=== PATIENT | male | born 1975 | race Caucasian/White ===

== ENCOUNTER 2018-11-06 07:26 | Outpatient (CLI) | payer OTHER ==
[2018-11-06] MEDS ORDERED: ROSU20TA2 PO (08:22)
[2018-11-06] MEDS ORDERED: ZINC PO (08:22)
[2018-11-06] MEDS ORDERED: GLUCOSAMINE (08:22)
[2018-11-06] MEDS ORDERED: MULT-154 PO (08:22)
[2018-11-06] MEDS ORDERED: IBUP-1902 PO (08:22)
[2018-11-06] MEDS ORDERED: CALC PO (08:22)
[2018-11-06] MEDS ORDERED: VITAMIN C (08:22)
[2018-11-06] MEDS ORDERED: FISH OIL (08:22)
[2018-11-06] MEDS ORDERED: MAG PO (08:22)
[2018-11-06] MEDS ORDERED: MONT10TA9 PO (08:22)
[2018-11-06] MEDS ORDERED: LEVO5TAB29 PO (08:41)
[2018-11-06] MEDS ORDERED: TESTOSTERONE CYP PO (08:41)
[2018-11-06 08:54] LABS: BASOPHILS # (AUTO) 0.06 x10^3/uL (0-0.1); BASOPHILS % (AUTO) 1 % (0-1); EOSINOPHILS # (AUTO) 0.15 x10^3/uL (0-0.4); EOSINOPHILS % (AUTO) 1 % (1-7); LYMPHOCYTES # (AUTO) 2.65 x10^3/uL (1-3.4); LYMPHOCYTES % (AUTO) 25 % (22-44); MD NO; MEAN CORPUSCULAR HEMOGLOBIN 29.2 pg (27.5-34.5); MEAN CORPUSCULAR HGB CONC 32.8 g/dL (33.2-36.2); MONOCYTES # (AUTO) 1.33 x10^3/uL (0.2-0.8); MONOCYTES % (AUTO) 13 % (2-9); NEUTROPHILS # (AUTO) 6.34 x10^3/uL (1.8-6.8); NEUTROPHILS % (AUTO) 60 % (42-75); PLATELET COUNT 347 x10^3/uL (130-400)
[2018-11-06 09:02] LABS: ALBUMIN 4.1 g/dL (3.4-5.0); ANION GAP 5 mmol/L (5-15); CALCIUM 9.1 mg/dL (8.5-10.1); CHLORIDE 110 mmol/L (98-107)
[2018-11-06 09:30] LABS: % IRON SATURATION 25 % (20-55); ALANINE AMINOTRANSFERASE 37 U/L (12-78); ALKALINE PHOSPHATASE 90 U/L (45-117); BILIRUBIN,TOTAL 0.5 mg/dL (0.2-1.0); CHOLESTEROL, TOTAL 180 mg/dL (140-239); CREATININE 1.12 mg/dL (0.7-1.3); HDL CHOL % 25 % (26-37); HDL CHOLESTEROL (DIRECT) 45 mg/dL (40-60); IRON LEVEL 83 mcg/dL (65-175); LDL CHOLESTEROL,CALCULATED 107 mg/dL (54-169); LDL/HDL RATIO 2.4 (0.5-3.0); PREALBUMIN 26.2 mg/dL (20.0-40.0); TOTAL IRON BINDING CAPACITY 332 mcg/dL (250-450); TOTAL PROTEIN 8.2 g/dL (6.4-8.2); TRANSFERRIN 259 mg/dL (200-360); TRIGLYCERIDES 141 mg/dL (50-200); VLDL CHOLESTEROL 28 mg/dL (0-25)
[2018-11-19] MEDS ORDERED: HYDR15SO3 PO (09:30)
== END 2018-11-06 23:59 | disposition home or self-care (01) ==
LOC: STAR 07:26
PROVIDERS: ATTEND Thoracic Surgery (Cardiothoracic Vascular Surgery)
DX: Z01.818 Encounter for other preprocedural examination (principal)
CPT/HCPCS: 36415; 71046; 80053; 80061; 82306; 82607; 82728; 83540; 83550; 83970; 84134; 84466; 85025; 93005

== ENCOUNTER 2018-11-18 05:44 | Inpatient (IN) | payer OTHER ==
[~2018-11-18] VITALS: Ht 188 cm; Wt 142.0 kg
[2018-11-19 07:14] VITALS: BP 116/70
== END 2018-11-19 11:25 | disposition home or self-care (01) | DRG 621 ==
LOC: ORIP 05:44 → 4NOR 10:19 → DCLOUNGE 11-19 11:15
PROVIDERS: ADMIT Thoracic Surgery (Cardiothoracic Vascular Surgery); ATTEND Thoracic Surgery (Cardiothoracic Vascular Surgery)
PROC: 0DB64Z3 Excision of Stomach, Percutaneous Endoscopic Approach, Vertical (ICD-10-PCS; principal; 2018-11-18)
PROC: 0BQT4ZZ Repair Diaphragm, Percutaneous Endoscopic Approach (ICD-10-PCS; 2018-11-18)
DX: E66.01 Morbid (severe) obesity due to excess calories (principal); K44.9 Diaphragmatic hernia without obstruction or gangrene; Z68.41 Body mass index [BMI] 40.0-44.9, adult; E78.00 Pure hypercholesterolemia, unspecified; G47.30 Sleep apnea, unspecified; K66.0 Peritoneal adhesions (postprocedural) (postinfection); Z90.49 Acquired absence of other specified parts of digestive tract; Z90.89 Acquired absence of other organs
CPT/HCPCS: 36415; J3490; 80048; 82040; 85025; 88307; G0378; J0131; J1100; J1170; J1885; J2175; J2250; J2405; J2704; J3010; J2270; J2370; J7120

== ENCOUNTER 2019-07-11 03:19 | Emergency (ER) | payer OTHER ==
[~2019-07-11] VITALS: Ht 188 cm; Wt 77.7 kg
[~2019-07-11 03:19] MED LIST: CALC PO; FISH OIL; GLUCOSAMINE; HYDR15SO3 PO; IBUP-1902 PO; LEVO5TAB29 PO; MAG PO; MONT10TA11 PO; MULT-154 PO; ROSU20TA2 PO; TESTOSTERONE CYP PO; VITAMIN C; ZINC PO
--- NOTE | 2019-07-11 03:40 | NUR ---
THIS IS A 44 YO MALE COMING IN FOR BILATERAL UPPER QUADRANT/EPIGASTRIC PAIN SINCE MIDNIGHT WITH ASSOCIATED N/V. PAITENT STATES "I THINK IT'S A COMPLICATION FROM THE HERNIA THAT HAPPENED AFTER MY GASTRIC SLEEVE SURGERY IN NOVEMBER". PATIENT HAS EXTENSIVE ABDOMINAL SURGICAL HX, PAIN HAS BEEN INTERMITTENT FOR THE PAST COUPLE MONTHS, BUT "NEVER THIS BAD, AND I HEAR THINGS SLOSHING AROUND MORE THAN NORMAL". HERNIA NOTED IN UPPER RIGHT QUADRANT, TENDER TO PALPATION. PAIN RATED 8/10, NO RADIATION, DESCRIBED SHARP PAIN ACROSS UPPER QUADRANTS. A&OX4, DENIES SOB/CP, DENIES WEAKNESS OR LIGHTHEADED. SPO2 AND BP MONITORING IN PLACE. VSS. PIV PLACED, LABS DRAWN. CALL LIGHT IN REACH.
--- NOTE | 2019-07-11 03:40 | NUR ---
Note undone in EDM - 07/11/19 at 0426 by KLEVER THIS IS A 44 YO MALE COMING IN FOR BILATERAL UPPER QUADRANT/EPIGASTRIC PAIN SINCE MIDNIGHT WITH ASSOCIATED N/V. LEXIT STATES "I THINK IT'S A COMPLICATION FROM THE HERNIA THAT HAPPENED AFTER MY GASTRIC SLEEVE SURGERY IN NOVEMBER". PATIENT HAS EXTENSIVE ABDOMINAL SURGICAL HX, PAIN HAS BEEN INTERMITTENT FOR THE PAST COUPLE MONTHS, BUT "NEVER THIS BAD, AND I HEAR THINGS SLOSHING AROUND MORE THAN NORMAL". HERNIA NOTED IN UPPER RIGHT QUADRANT, TENDER TO PALPATION. PAIN RATED 8/10, NO RADIATION, DESCRIBED SHARP PAIN ACROSS UPPER QUADRANTS. A&OX4, DENIES SOB/CP, DENIES WEAKNESS OR LIGHTHEADED. SPO2 AND BP MONITORING IN PLACE. VSS. PIV PLACED, LABS DRAWN. CALL LIGHT IN REACH.
[2019-07-11] MEDS ORDERED: CELE200C PO (03:50)
[2019-07-11] MEDS ORDERED: METH4TAB6 PO (03:50)
[2019-07-11] MEDS ORDERED: GABA300C10 PO (03:51)
[2019-07-11] MEDS ORDERED: OMEP-110 PO (03:51)
[2019-07-11] MEDS ORDERED: TIZA4CAP PO (03:51)
[2019-07-11] MEDS ORDERED: METH750T2 PO (03:52)
[2019-07-11] MEDS ORDERED: TRAM50TA2 PO (03:52)
[2019-07-11] MEDS ORDERED: MORPHINE SULFATE 4 MG/ML, 1ML ONE (03:53)
[2019-07-11] MEDS ORDERED: ONDANSETRON 2MG/ML, 2ML ONE (03:53)
[2019-07-11 03:57] LABS: BASOPHILS # (AUTO) 0.05 x10^3/uL (0-0.1); BASOPHILS % (AUTO) 1 % (0-1); EOSINOPHILS # (AUTO) 0.06 x10^3/uL (0-0.4); EOSINOPHILS % (AUTO) 1 % (1-7); LYMPHOCYTES # (AUTO) 1.78 x10^3/uL (1-3.4); LYMPHOCYTES % (AUTO) 21 % (22-44); MD NO; MEAN CORPUSCULAR HEMOGLOBIN 30.1 pg (27.5-34.5); MEAN CORPUSCULAR HGB CONC 32.9 g/dL (33.2-36.2); MEAN CORPUSCULAR VOLUME 91.7 fL (81-97); MEAN PLATELET VOLUME 8.3 fL (7.4-10.4); MONOCYTES # (AUTO) 0.72 x10^3/uL (0.2-0.8); MONOCYTES % (AUTO) 9 % (2-9); NEUTROPHILS # (AUTO) 5.77 x10^3/uL (1.8-6.8); NEUTROPHILS % (AUTO) 69 % (42-75); PLATELET COUNT 318 x10^3/uL (130-400); RED BLOOD COUNT 4.61 x10^6/uL (4.38-5.82); RED CELL DISTRIBUTION WIDTH 15.1 % (9.4-14.8)
[2019-07-11] MEDS ORDERED: MORPHINE SULFATE 4 MG/ML, 1ML IVPush PRN (04:00)
[2019-07-11] MEDS ORDERED: SODIUM CHLORIDE FLUSH 10ML SYR IVF ONE (04:00)
[2019-07-11] MEDS ORDERED: ONDANSETRON 2MG/ML, 2ML IVPush ONE (04:00)
--- NOTE | 2019-07-11 04:03 | NUR ---
PATIENT MEDICATED PER EMAR, TOLERATED WELL
[2019-07-11 04:09] LABS: ALBUMIN 3.8 g/dL (3.4-5.0); ANION GAP 6 mmol/L (5-15); CALCIUM 8.9 mg/dL (8.5-10.1); CHLORIDE 110 mmol/L (98-107)
[2019-07-11 04:12] LABS: ALANINE AMINOTRANSFERASE 51 U/L (12-78); ALKALINE PHOSPHATASE 51 U/L (45-117); BILIRUBIN,TOTAL 0.2 mg/dL (0.2-1.0); CREATININE 0.98 mg/dL (0.7-1.3); TOTAL PROTEIN 7.4 g/dL (6.4-8.2)
--- NOTE | 2019-07-11 04:15 | NUR ---
Erica mirza in [facility] - 07/11/19 at [address]IENT [address]
--- NOTE | 2019-07-11 04:30 | NUR ---
PT IN CT
[2019-07-11] MEDS ORDERED: OMNIPAQUE 350 MG/ML, 100ML BOTTLE ONE (04:37)
[2019-07-11 04:47] VITALS: BP 111/68
--- NOTE | 2019-07-11 04:48 | NUR ---
UA COLLECTED AND SENT
[2019-07-11 05:00] LABS: MICROSCOPIC AUTO
[2019-07-11 05:01] LABS: CULTURE INDICATED? NO
--- NOTE | 2019-07-11 05:25 | NUR ---
ERP IN ROOM
--- NOTE | 2019-07-11 05:33 | NUR ---
PIV REMOVED, PATIENT TO BE DISCHARGED. AWAITING DISCHARGE PAPERWORK
--- NOTE | 2019-07-11 05:40 | NUR ---
Patient given discharge instructions and they have confirmed that they understand the instructions. Patient ambulatory with steady gait.
== END 2019-07-11 05:42 | disposition home or self-care (01) ==
LOC: ED 04:14
DX: R10.84 Generalized abdominal pain (principal); E78.5 Hyperlipidemia, unspecified
CPT/HCPCS: 36415; 74177; 80053; 81001; 83690; 85025; 96374; 96375; 99285; J2270; J2405; Q9967

== ENCOUNTER 2019-08-17 15:59 | Inpatient (IN) | payer OTHER ==
[~2019-08-17] VITALS: Ht 188 cm; Wt 77.8 kg
[~2019-08-17 15:59] MED LIST changes: +CELE200C PO; +GABA300C10 PO; +METH4TAB6 PO; +METH750T2 PO; +OMEP-110 PO; +TIZA4CAP PO; +TRAM50TA2 PO
--- NOTE | 2019-08-17 16:16 | NUR ---
ABD PAIN ALL QUADRANTS, N/V SINCE LAST NIGHT. Seen here for same a few weeks ago Patient quite anxious & animated Placed on NIbp/pox Provider to bedside review poc
[2019-08-17] MEDS ORDERED: ONDANSETRON 2MG/ML, 2ML ONE (16:24)
[2019-08-17] MEDS ORDERED: HYDROmorphone 1 MG/ML, 1ML INJ ONE ×2 (16:24→18:01)
[2019-08-17] MEDS ORDERED: SODIUM CHLORIDE FLUSH 10ML SYR IVF ONE (16:30)
[2019-08-17] MEDS ORDERED: ONDANSETRON 2MG/ML, 2ML IVPush ONE (16:30)
[2019-08-17] MEDS ORDERED: SODIUM CHLORIDE 0.9% 1,000ML IVBOLUS ONE (16:30)
[2019-08-17] MEDS: HYDROmorphone 2 MG/ML, 1ML IVPush PRN ×3 (16:41→22:07)
--- NOTE | 2019-08-17 16:45 | NUR ---
Ua sent Piv placed from which labs were drawn Patient then medicated per EMAR for Abd pain at 8/10 and nausea at 7/10
[2019-08-17 16:56] LABS: BASOPHILS # (AUTO) 0.09 x10^3/uL (0-0.1); BASOPHILS % (AUTO) 1 % (0-1); EOSINOPHILS # (AUTO) 0.08 x10^3/uL (0-0.4); EOSINOPHILS % (AUTO) 1 % (1-7); LYMPHOCYTES # (AUTO) 1.49 x10^3/uL (1-3.4); LYMPHOCYTES % (AUTO) 12 % (22-44); MD NO; MEAN CORPUSCULAR HEMOGLOBIN 30.5 pg (27.5-34.5); MEAN CORPUSCULAR HGB CONC 32.8 g/dL (33.2-36.2); MEAN CORPUSCULAR VOLUME 93.1 fL (81-97); MEAN PLATELET VOLUME 8.5 fL (7.4-10.4); MONOCYTES # (AUTO) 1.04 x10^3/uL (0.2-0.8); MONOCYTES % (AUTO) 8 % (2-9); NEUTROPHILS # (AUTO) 10.02 x10^3/uL (1.8-6.8); NEUTROPHILS % (AUTO) 79 % (42-75); PLATELET COUNT 335 x10^3/uL (130-400); RED BLOOD COUNT 5.24 x10^6/uL (4.38-5.82); RED CELL DISTRIBUTION WIDTH 14.9 % (9.4-14.8)
[2019-08-17 17:04] LABS: CULTURE INDICATED? NO; MICROSCOPIC AUTO
[2019-08-17 17:09] LABS: ANION GAP 8 mmol/L (5-15); CALCIUM 10.2 mg/dL (8.5-10.1); CHLORIDE 103 mmol/L (98-107); CREATININE 1.27 mg/dL (0.7-1.3)
[2019-08-17 17:10] LABS: ALANINE AMINOTRANSFERASE 83 U/L (12-78); ALBUMIN 4.7 g/dL (3.4-5.0)
[2019-08-17 17:12] LABS: ALKALINE PHOSPHATASE 65 U/L (45-117); BILIRUBIN,TOTAL 0.8 mg/dL (0.2-1.0); TOTAL PROTEIN 8.9 g/dL (6.4-8.2)
--- NOTE | 2019-08-17 17:41 | NUR ---
with reassessment: patient quite drowsy (requiring 2l nc). However, asking for more pain/nause medicines (level at 5/10 x 2). Provider made aware
--- NOTE | 2019-08-17 17:50 | NUR ---
To ct scan
[2019-08-17] MEDS ORDERED: OMNIPAQUE 350 MG/ML, 100ML BOTTLE ONE (17:59)
--- NOTE | 2019-08-17 18:10 | NUR ---
Medicated per Emar for pain which has rebounded to 910 remains on 2l nc Updated on estimated poc
[2019-08-17] MEDS ORDERED: MIDAZOLAM 1 MG/ML, 2ML ONE (19:03)
--- NOTE | 2019-08-17 19:06 | NUR ---
ER PROVIDER TO BEDSIDE-AFTER CONSULTING SURGERY WOULD NOW LIKE NG TUBE DESPITE LACK OF VOMITING. REPORT TO RAJINDER MATHEWS WHO WILL PLACE NG TUBE
[2019-08-17] MEDS ORDERED: MIDAZOLAM 1 MG/ML, 2ML IVPush ONE (19:30)
--- NOTE | 2019-08-17 20:08 | NUR ---
Report given to REID Gaona. Patient to be transferred to room 467-1.
[2019-08-17 20:40] VITALS: BP 138/83
[2019-08-17] MEDS: SODIUM CHLORIDE 0.9% 1,000 ML IV SCH (20:56)
[2019-08-17] MEDS: BISACODYL 10 MG SUPP PR SCH (21:00)
[2019-08-17] MEDS: ONDANSETRON 2MG/ML, 2ML IVPush PRN (22:08)
[2019-08-17 22:23] VITALS: BP 138/83
[2019-08-18 01:50] VITALS: BP 114/60
[2019-08-18] MEDS: HYDROmorphone 2 MG/ML, 1ML IVPush PRN ×8 (02:05→21:30)
[2019-08-18] MEDS: ONDANSETRON 2MG/ML, 2ML IVPush PRN ×3 (04:05→18:15)
[2019-08-18] MEDS: SODIUM CHLORIDE 0.9% 1,000 ML IV SCH (05:18)
[2019-08-18] MEDS ORDERED: LORazepam 2 MG/ML, 1ML ONE (05:41)
[2019-08-18] MEDS ORDERED: LORazepam 2 MG/ML, 1ML IVPush ONE (06:00)
[2019-08-18 06:13] LABS: ALBUMIN 3.5 g/dL (3.4-5.0); ANION GAP 8 mmol/L (5-15); CALCIUM 8.4 mg/dL (8.5-10.1); CHLORIDE 111 mmol/L (98-107)
[2019-08-18 06:20] LABS: ALANINE AMINOTRANSFERASE 53 U/L (12-78); ALKALINE PHOSPHATASE 49 U/L (45-117); BILIRUBIN,TOTAL 0.8 mg/dL (0.2-1.0); TOTAL PROTEIN 6.7 g/dL (6.4-8.2)
[2019-08-18 06:25] LABS: BASOPHILS # (AUTO) 0.05 x10^3/uL (0-0.1); BASOPHILS % (AUTO) 1 % (0-1); EOSINOPHILS # (AUTO) 0.11 x10^3/uL (0-0.4); EOSINOPHILS % (AUTO) 1 % (1-7); LYMPHOCYTES # (AUTO) 1.89 x10^3/uL (1-3.4); LYMPHOCYTES % (AUTO) 22 % (22-44); MD NO; MEAN CORPUSCULAR HEMOGLOBIN 30.3 pg (27.5-34.5); MEAN CORPUSCULAR HGB CONC 32.7 g/dL (33.2-36.2); MEAN CORPUSCULAR VOLUME 92.8 fL (81-97); MEAN PLATELET VOLUME 8.5 fL (7.4-10.4); MONOCYTES % (AUTO) 9 % (2-9); NEUTROPHILS % (AUTO) 67 % (42-75); PLATELET COUNT 273 x10^3/uL (130-400)
[2019-08-18 07:21] VITALS: BP 112/61
[2019-08-18] MEDS: BISACODYL 10 MG SUPP PR SCH (08:58)
[2019-08-18] MEDS: D5%-0.45NACL+KCL 20MEQ 1,000 ML IV SCH ×2 (09:56→22:21)
[2019-08-18] MEDS ORDERED: CHLORHEXIDINE 15 ML UDC MM STA (11:08)
[2019-08-18] MEDS ORDERED: CHLORHEXIDINE 15 ML UDC ONE (11:11)
[2019-08-18] MEDS ORDERED: MIDAZOLAM 1 MG/ML, 2ML ONE (11:34)
[2019-08-18] MEDS ORDERED: FENTANYL PF 250 MCG/5ML ONE (11:34)
[2019-08-18] MEDS ORDERED: GLYCOPYRROLATE 0.2MG/1ML, 5ML ONE (11:35)
[2019-08-18] MEDS ORDERED: PROPOFOL 10 MG/ML, 20ML ONE (11:35)
[2019-08-18] MEDS ORDERED: NEOSTIGMINE 1 MG/ML, 10ML ONE (11:35)
[2019-08-18] MEDS ORDERED: CEFOTETAN PMX 2GM/50ML 50 ML ONE (11:35)
[2019-08-18] MEDS ORDERED: ROCURONIUM 10MG/ML,5ML ONE (11:35)
[2019-08-18] MEDS ORDERED: SUCCINYLCHOLINE 20 MG/ML, 10ML ONE (11:35)
[2019-08-18] MEDS ORDERED: BUPIVACAINE/PF-EPI 0.5% 1:200K ONE (11:54)
[2019-08-18] MEDS ORDERED: hydrALAzine 20 MG/ML, 1ML IV PRN (12:00)
[2019-08-18] MEDS ORDERED: MEPERIDINE/PF 25MG/ML,1ML IVPush PRN (12:00)
[2019-08-18] MEDS ORDERED: LABETALOL 5MG/ML, 20ML IV PRN (12:00)
[2019-08-18] MEDS ORDERED: ONDANSETRON 2MG/ML, 2ML IV PRN (12:00)
[2019-08-18] MEDS ORDERED: FENTANYL PF 100 MCG/2ML ONE (14:02)
[2019-08-18] MEDS: FENTANYL PF 100 MCG/2ML IV PRN ×2 (14:04→14:12)
[2019-08-18] MEDS ORDERED: MORPHINE SULFATE 4 MG/ML, 1ML ONE ×2 (14:15→14:26)
[2019-08-18] MEDS: MORPHINE SULFATE 4 MG/ML, 1ML IVPush PRN ×4 (14:17→20:12)
[2019-08-18] MEDS ORDERED: HYDROmorphone 1 MG/ML, 1ML INJ ONE ×2 (14:33→14:54)
[2019-08-18 15:38] VITALS: BP 111/59
[2019-08-18 20:14] VITALS: BP 113/63
[2019-08-19] MEDS: HYDROmorphone 2 MG/ML, 1ML IVPush PRN ×9 (00:26→21:51)
[2019-08-19] MEDS: ONDANSETRON 2MG/ML, 2ML IVPush PRN ×3 (00:31→19:32)
[2019-08-19 01:12] VITALS: BP 100/54
[2019-08-19 04:26] VITALS: BP 99/57
[2019-08-19 05:11] LABS: BASOPHILS # (AUTO) 0.01 x10^3/uL (0-0.1); BASOPHILS % (AUTO) 0 % (0-1); EOSINOPHILS # (AUTO) 0.09 x10^3/uL (0-0.4); EOSINOPHILS % (AUTO) 1 % (1-7); LYMPHOCYTES # (AUTO) 1.01 x10^3/uL (1-3.4); LYMPHOCYTES % (AUTO) 13 % (22-44); MD NO; MEAN CORPUSCULAR HEMOGLOBIN 30.6 pg (27.5-34.5); MEAN CORPUSCULAR HGB CONC 32.7 g/dL (33.2-36.2); MEAN CORPUSCULAR VOLUME 93.4 fL (81-97); MEAN PLATELET VOLUME 8.4 fL (7.4-10.4); MONOCYTES # (AUTO) 0.69 x10^3/uL (0.2-0.8); MONOCYTES % (AUTO) 9 % (2-9); NEUTROPHILS % (AUTO) 77 % (42-75); PLATELET COUNT 232 x10^3/uL (130-400); RED BLOOD COUNT 4.02 x10^6/uL (4.38-5.82)
[2019-08-19 05:14] LABS: ALBUMIN 2.9 g/dL (3.4-5.0); ANION GAP 6 mmol/L (5-15); CHLORIDE 111 mmol/L (98-107)
[2019-08-19 05:15] LABS: CREATININE 0.81 mg/dL (0.7-1.3)
[2019-08-19] MEDS: D5%-0.45NACL+KCL 20MEQ 1,000 ML IV SCH ×2 (06:36→15:39)
[2019-08-19 06:48] VITALS: BP 98/58
[2019-08-19] MEDS: BISACODYL 10 MG SUPP PR SCH (09:33)
[2019-08-19 12:07] VITALS: BP 100/64
[2019-08-19 18:32] VITALS: BP 103/63
[2019-08-20] MEDS: HYDROmorphone 2 MG/ML, 1ML IVPush PRN ×3 (00:52→07:47)
[2019-08-20 01:05] VITALS: BP 96/56
[2019-08-20] MEDS: ONDANSETRON 2MG/ML, 2ML IVPush PRN ×2 (01:36→07:48)
[2019-08-20] MEDS: D5%-0.45NACL+KCL 20MEQ 1,000 ML IV SCH ×2 (02:00→14:00)
[2019-08-20 05:50] LABS: BASOPHILS # (AUTO) 0.02 x10^3/uL (0-0.1); BASOPHILS % (AUTO) 0 % (0-1); EOSINOPHILS # (AUTO) 0.43 x10^3/uL (0-0.4); EOSINOPHILS % (AUTO) 6 % (1-7); LYMPHOCYTES # (AUTO) 1.42 x10^3/uL (1-3.4); LYMPHOCYTES % (AUTO) 21 % (22-44); MD NO; MEAN CORPUSCULAR HEMOGLOBIN 30.7 pg (27.5-34.5); MEAN CORPUSCULAR HGB CONC 32.8 g/dL (33.2-36.2); MEAN CORPUSCULAR VOLUME 93.7 fL (81-97); MEAN PLATELET VOLUME 8.1 fL (7.4-10.4); MONOCYTES # (AUTO) 0.86 x10^3/uL (0.2-0.8); MONOCYTES % (AUTO) 13 % (2-9); NEUTROPHILS # (AUTO) 3.98 x10^3/uL (1.8-6.8); NEUTROPHILS % (AUTO) 59 % (42-75); PLATELET COUNT 221 x10^3/uL (130-400); RED BLOOD COUNT 3.78 x10^6/uL (4.38-5.82); RED CELL DISTRIBUTION WIDTH 14.9 % (9.4-14.8)
[2019-08-20 05:53] LABS: ALBUMIN 2.8 g/dL (3.4-5.0); ANION GAP 7 mmol/L (5-15); CALCIUM 8.1 mg/dL (8.5-10.1); CHLORIDE 109 mmol/L (98-107)
[2019-08-20 05:54] LABS: CREATININE 0.84 mg/dL (0.7-1.3)
[2019-08-20 06:44] VITALS: BP 108/66
[2019-08-20] MEDS: BISACODYL 10 MG SUPP PR SCH ×2 (07:48→07:59)
[2019-08-20] MEDS ORDERED: HYDROcodone/APAP 5/325 TABLET PO PRN (10:30)
[2019-08-20] MEDS ORDERED: OXYC-302 PO (13:12)
[2019-08-20] MEDS ORDERED: DOCU-131 PO (13:13)
[2019-08-20 13:36] VITALS: BP 104/67
[2019-08-20 15:19] VITALS: BP 104/62
== END 2019-08-20 15:43 | disposition home or self-care (01) | DRG 335 ==
LOC: ED 16:54 → EDIP 19:51 → 4NE 20:29
PROVIDERS: ADMIT Internal Medicine; ATTEND Family Medicine
PROC: 0DNW4ZZ Release Peritoneum, Percutaneous Endoscopic Approach (ICD-10-PCS; 2019-08-18)
PROC: 0WUF4JZ Supplement Abdominal Wall with Synthetic Substitute, Percutaneous Endoscopic Approach (ICD-10-PCS; principal; 2019-08-18 12:30)
DX: K43.2 Incisional hernia without obstruction or gangrene (principal); K56.2 Volvulus; K56.50 Intestinal adhesions [bands], unspecified as to partial versus complete obstruction; K57.80 Diverticulitis of intestine, part unspecified, with perforation and abscess without bleeding; E78.5 Hyperlipidemia, unspecified; E66.01 Morbid (severe) obesity due to excess calories; D72.829 Elevated white blood cell count, unspecified; K66.0 Peritoneal adhesions (postprocedural) (postinfection); Z90.49 Acquired absence of other specified parts of digestive tract; Z93.3 Colostomy status; Z98.84 Bariatric surgery status
CPT/HCPCS: 36415; 74018; 74177; 80053; 80069; 81001; 83605; 83690; 83735; 85025; 93005; 96374; 96375; 96376; G0378; J1170; J2250; J2405; J2704; J2710; J3010; Q9967; C1781; J0330; J2060; J2270; J3480; J3490; J7030

== ENCOUNTER 2019-09-24 12:02 | Emergency (ER) | payer OTHER ==
[~2019-09-24] VITALS: Ht 188 cm; Wt 72.7 kg
[~2019-09-24 12:02] MED LIST changes: +DOCU-131 PO; +OXYC-302 PO
[2019-09-24 12:03] VITALS: BP 116/79
[2019-09-24] MEDS ORDERED: BUPIVACAINE/PF-EPI 0.25% 1:200K SQ ONE (14:30)
[2019-09-24] MEDS ORDERED: LIDOCAINE-MPF 1%, 5ML INFIL ONE (14:30)
[2019-09-24] MEDS ORDERED: LIDOCAINE-MPF 1%, 5ML ONE (14:32)
--- NOTE | 2019-09-24 14:53 | NUR ---
SUTURE SETUP AT BEDSIDE, WOUND CLEANSED. AWAITING SUTURES BY VANESSA
[2019-09-24] MEDS ORDERED: NEOSPORIN OINT. PKT 1 PACKET ONE (15:36)
--- NOTE | 2019-09-24 15:42 | NUR ---
Wound care performed, provided with additional supplies for home Reviewed home wound care and f/u for suture removal
== END 2019-09-24 15:44 | disposition home or self-care (01) ==
LOC: ED 15:03
DX: S61.412A Laceration without foreign body of left hand, initial encounter (principal); X58.XXXA Exposure to other specified factors, initial encounter; Y93.89 Activity, other specified; Y92.098 Other place in other non-institutional residence as the place of occurrence of the external cause; Y99.8 Other external cause status
CPT/HCPCS: 12041; 99284